=== PATIENT | male | born 1985 | race Caucasian/White ===

== ENCOUNTER 2024-04-29 04:46 | Day surgery (SDC) | payer OTHER ==
[2024-04-25 17:02] VITALS: BMI 37.5
[2024-04-29] MEDS ORDERED: BUPIVACAINE HCL/PF 0.5% (5MG/ML) 10 ML VIAL ONE (09:53)
[2024-04-29] MEDS ORDERED: LIDOCAINE HCL 1%, 10 MG/ML (20ML VIAL) ONE (09:53)
[2024-04-29] MEDS ORDERED: LIDOCAINE HCL/PF 2% SDV 5ML VIAL ONE (10:14)
[2024-04-29] MEDS ORDERED: PROPOFOL 20 ML ONE ×2 (10:15→10:44)
[2024-04-29] MEDS ORDERED: MIDAZOLAM HCL 2 MG/2 ML SINGLE DOSE VIAL ONE (10:15)
[2024-04-29] MEDS: ceFAZolin SODIUM 1 GM VIAL IVPB ONE (10:45)
[2024-04-29] MEDS ORDERED: ceFAZolin SODIUM 1 GM VIAL ONE ×2 (10:48→10:50)
[2024-04-29] MEDS ORDERED: DEXAMETHASONE SOD PHOSPHATE 4 MG/1 ML VIAL ONE (10:48)
[2024-04-29] MEDS: BUPIVACAINE HCL/PF 0.5% (5 MG/ML) 30 ML VIAL IJ ONE (10:59)
[2024-04-29] MEDS: LIDOCAINE HCL 1%, 10 MG/ML (20ML VIAL) NR ONE (10:59)
[2024-04-29] MEDS ORDERED: ONDANSETRON 4 MG/2 ML VIAL ONE (11:08)
[2024-04-29] MEDS ORDERED: KETOROLAC TROMETHAMINE 30 MG/1 ML VIAL ONE (11:08)
[2024-04-29] MEDS ORDERED: oxyCODONE HCL 5 MG TABLET PO PRN ×2 (11:49)
[2024-04-29] MEDS ORDERED: ONDANSETRON 4 MG/2 ML VIAL IVPUSH PRN (11:49)
[2024-04-29] MEDS ORDERED: PROMETHAZINE HCL 25 MG/1 ML VIAL IVPB PRN (11:49)
[2024-04-29] MEDS ORDERED: ACETAMINOPHEN INJECTION 100 ML IVPB ONE (12:09)
[2024-04-29] MEDS: ACETAMINOPHEN 1000 MG/100 ML BAG IVPB ONE (12:13)
[2024-04-29] MEDS: LACTATED RINGERS SOLUTION 1,000 ML IV SCH (12:14)
[2024-04-29 13:14] VITALS: PULSE 86; RESP 20
[2024-04-29 15:05] VITALS: BP 141/92; TEMP 97.3
== END 2024-04-29 15:06 | disposition home or self-care (01) ==
LOC: JASU-SURG 04:46
PROVIDERS: ATTEND Urology
PROC: 0VBQ0ZZ Excision of Bilateral Vas Deferens, Open Approach (ICD-10-PCS; principal; 2024-04-29 10:30)
DX: Z30.2 Encounter for sterilization (principal)
CPT/HCPCS: 88302-TC; 94760; J0131